=== PATIENT | male | born 1955 | race Caucasian/White ===

== ENCOUNTER 2019-05-25 09:18 | Emergency (ER) | payer BC ==
--- NOTE | 2019-05-25 10:45 | EDM.PDOC ---
ED HPI GENERAL MEDICAL PROBLEM - General Chief Complaint: Neuro Symptoms/Deficits Stated Complaint: numbness in RIGHT HAND Time Seen by Provider: 05/25/19 10:38 Source of Information: Reports: Patient, RN Notes Reviewed History Limitations: Reports: No Limitations - History of Present Illness INITIAL COMMENTS - FREE TEXT/NARRATIVE: 64-year-old gentleman presents emergency department today complaint of numbness in his right hand. He states the numbness started about 24 hours ago when he awoke with these symptoms. 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 Denies any other focal neurologic deficits. No nausea no vomiting no shortness of breath no headache no chest pain no trauma, does admit to having pain intermittently in his right elbow denies Pain Score (Numeric/FACES): 0 - Related Data Allergies Allergy/AdvReac Type Severity Reaction Status Date / Time No Known Allergies Allergy Verified 05/25/19 09:35 Home Meds: Home Meds NK [No Known Home Meds] 05/25/19 [History] Past Medical History HEENT History: Reports: Impaired Vision Musculoskeletal History: Reports: Fracture Other Musculoskeletal History: clavicle - Infectious Disease History Infectious Disease History: Reports: Chicken Pox, Measles, Mumps Social & Family History - Tobacco Use Smoking Status *Q: Current Every Day Smoker Years of Tobacco use: 42 Packs/Tins Daily: 1 Used Tobacco, but Quit: No Second Hand Smoke Exposure: Yes - Caffeine Use Caffeine Use: Reports: Coffee, Soda - Alcohol Use Days Per Week of Alcohol Use: 2 Number of Drinks Per Day: 3 Total Drinks Per Week: 6 - Recreational Drug Use Recreational Drug Use: No ED ROS GENERAL - Review of Systems Review Of Systems: See Below Constitutional: Reports: No Symptoms HEENT: Reports: No Symptoms Respiratory: Reports: No Symptoms Cardiovascular: Reports: No Symptoms GI/Abdominal: Reports: No Symptoms : Reports: No Symptoms Musculoskeletal: Reports: Joint Pain (Right elbow pain) Skin: Reports: No Symptoms Neurological: Reports: Numbness (Right hand) ED EXAM, NEURO - Physical Exam Exam: See Below Text/Narrative:: Examination of the upper extremities I don't appreciate any point tenderness to palpation on the right side no point tenderness around the elbow I don't appreciate any erythema or edema. Power is 5 x 5 upper and lower extremities there is no pronator drift he is able to distinguish between sharp and dull touch he has adequate 2 point discrimination to palpation radial pulses +2 Exam Limited By: No Limitations General Appearance: Alert, WD/WN, No Apparent Distress Eye Exam: Bilateral Eye: Normal Inspection Course - Vital Signs Last Recorded V/S: Last Vital Signs Temp 95.4 F 05/25/19 09:41 Pulse 72 05/25/19 09:41 Resp 14 05/25/19 09:41 BP 169/91 H 05/25/19 09:41 Pulse Ox 97 05/25/19 09:41 Departure - Departure Time of Disposition: 10:45 Disposition: Home, Self-Care 01 Condition: Fair Clinical Impression: Numbness of right hand - Discharge Information Referrals: Naren Anand MD [Primary Care Provider] - Additional Instructions: Please followup with your primary care provider in 3-5 days if not better, please call return to the emergency department with worsening of symptoms. - Assessment/Plan Plan: Assessment Acuity = acute Site and laterality = right hand numbness Etiology = unclear etiology Manifestations = none Location of injury = Home Lab values = none Plan I long discussion with him about etiologies which could include compromise peripheral nerve or combination of nerves also central nervous system cerebrovascular event. I gave him options which included watchful waiting, minimal blood work, or stroke evaluation. He elected to do watchful waiting and will follow up with his primary care for further evaluation, he did take an aspirin today and he uses a daily aspirin This note was dictated using [employer] voice recognition software please call with any questions on syntax or grammar.
== END 2019-05-25 10:50 | disposition home or self-care (01) ==
LOC: JP.ED 09:18
DX: R20.0 Anesthesia of skin (principal); F17.210 Nicotine dependence, cigarettes, uncomplicated
CPT/HCPCS: 99283

== ENCOUNTER 2021-11-18 05:35 | Day surgery (SDC) | payer BC ==
[2021-11-18] MEDS ORDERED: Acetaminophen 500 MG Tab PO ONE (05:45)
[2021-11-18] MEDS ORDERED: Dextrose 5%-Lactated Ringers 1,000 ML IV SCH (06:30)
[2021-11-18] MEDS ORDERED: Bupivacaine 0.5%/EPINEPHrine 1:200,000 50 ML MDV ONE (06:47)
[2021-11-18] MEDS ORDERED: Propofol 200 MG/20 ML SDV ONE (07:08)
[2021-11-18] MEDS ORDERED: Neostigmine Methylsulfate 1 MG/ML 5 ML Syringe ONE (07:08)
[2021-11-18] MEDS ORDERED: fentaNYL 250 MCG/5 ML SDV ONE (07:08)
[2021-11-18] MEDS ORDERED: Glycopyrrolate 0.2 MG/ML 5 ML MDV ONE (07:08)
[2021-11-18] MEDS ORDERED: Ondansetron 4 MG/2 ML SDV ONE (07:08)
[2021-11-18] MEDS ORDERED: Dexamethasone 4 MG/ML SDV ONE (07:08)
[2021-11-18] MEDS ORDERED: Rocuronium 50 MG/5 ML Vial ONE (07:08)
[2021-11-18] MEDS ORDERED: ceFAZolin 2 GM in Premix Bag 1 BAG IV ONE (07:15)
[2021-11-18] MEDS ORDERED: Ketamine 21 MG in Sodium Chloride 0.9% 19.79 ML IV SCH (07:30)
[2021-11-18] MEDS ORDERED: Ketamine 500 MG/5 ML MDV IV SCH (07:30)
[2021-11-18] MEDS ORDERED: fentaNYL 100 MCG/2 ML SDV ONE ×2 (08:14→08:24)
[2021-11-18] MEDS: Meropenem 500 MG SDV ONE ×2 (08:20→10:25)
[2021-11-18] MEDS: Lidocaine 1% with EPINEPHrine 1:100,000 50 ML MDV ONE ×2 (08:30→10:40)
[2021-11-18] MEDS: Bupivacaine 0.5% 50 ML MDV ONE ×2 (08:30→10:40)
[2021-11-18] MEDS ORDERED: Ketorolac 30 MG/ML SDV ONE (08:49)
[2021-11-18] MEDS ORDERED: Labetalol 20 MG/4 ML Syringe ONE (09:07)
[2021-11-18] MEDS ORDERED: oxyCODONE 5 MG Tab PO ONE (10:45)
[2021-11-18] MEDS ORDERED: Cyclobenzaprine 10 MG Tab PO ONE (10:45)
== END 2021-11-18 11:40 | disposition home or self-care (01) ==
LOC: JP.SDS 05:35
PROVIDERS: ATTEND Surgery
DX: K43.9 Ventral hernia without obstruction or gangrene (principal); K42.0 Umbilical hernia with obstruction, without gangrene; E66.9 Obesity, unspecified; F17.200 Nicotine dependence, unspecified, uncomplicated; Z68.29 Body mass index [BMI] 29.0-29.9, adult
CPT/HCPCS: 36415; 80053; 83735; 84100; 85027; 88302; A9270-GY; C1781; J0171; J0690; J1100; J1885; J2020; J2185; J2405; J2704; J2710; J2795; J3010; J3490; J7121